=== PATIENT | male | born 1965 | race Caucasian/White ===

== ENCOUNTER → 2019-01-03 | Day surgery (SDC) | payer OTHER ==
[~2019-01-03] MED LIST: ASPIRIN EC 325 MG TAB PO ONE; ATROPINE SULFATE 1 MG/10 ML SYR IVP PRN; DIAZEPAM 5 MG TAB ONE; DIAZEPAM 5 MG TAB PO ONE; FAMOTIDINE 20 MG TAB ONE; FAMOTIDINE 20 MG TAB PO ONE; HYDROCODONE/APAP 5/325 TAB PO PRN; IOHEXOL 350mgI/ML (OMNIPAQUE) 150 ML BTL IV ONE; LIDOCAINE 1% 300 MG/30 ML SDV ONE; MIDAZOLAM 2 MG/2 ML VIAL ONE; NITROGLYCERIN 0.4 MG BTL SL PRN; NS 1,000 ML IV ONE; ONDANSETRON 4 MG/2 ML VIAL IVP PRN; OXYCODONE/APAP 5/325 TAB PO PRN; diphenhydrAMINE 25 MG CAP PO ONE; fentaNYL 100 MCG/2 ML INJ ONE
[2019-01-03 10:00] LABS: PLATELET COUNT 236 10^3/uL (150-400)
[2019-01-03 10:09] LABS: INR 1.08 (0.83-1.16); PROTIME(PATIENT) 14.2 SEC (12.0-15.0)
--- NOTE | 2019-01-03 10:57 | PDPROPOC ---
Sedation Plan of Care Sedation Plan of Care: vital signs stable, mental status noted, patient educated of risks, benefits, alternatives, patient can tolerate sedation ASA Classification: ASA 2 Planned drugs: fentanyl, midazolam Mallampati Score: Class 2 Mallampati Reference Image: Patient passed 3-3-2 rule?: Yes
--- NOTE | 2019-01-03 10:58 | PDHPUP ---
History & Physical Update H&P update statement: This history and physical update is based on an assessment of the patient which was completed after admission or registration (within 24 hours), but prior to the surgery/procedure. H&P update: H&P reviewed & patient examined, no change in patient's condition since H&P completed
--- NOTE | 2019-01-03 13:42 | PDDXCAT ---
Diagnostic Cath Note - . Date: 01/03/19 Catalogue Librarian: Son Indication: other (revisitation of pSVT with history of abnormal stress test with ECG changes noted) - Procedure Access: right groin Procedure: left heart catheterization, coronary angiography, left ventriculogram - Materials Left Heart Cath size: 6F Left Heart Cath materials: standard multipack (JL4, JR4, pigtail), JL3.5, Cachorro's R, other (AL1, LCB, AL2, EBU) - Findings-Left Heart Catheterization LM: Short vessel with trifurcation into the LAD, ramus, and LCX vessels. No appreciable CAD was noted to this vessel. LAD: Large diameter vessel with principal diagonal. Just distal to the diagonal , there is a 20% lesion noted. Distal tortuosity was noted. No further CAD was noted to the LAD system LCX: Large diameter vessel with a principal OM that has the majority of the LCX diameter. The mid/distal LCX is relatively small and diminuative. Distal tortuosity is noted. No significant luminal irregularities were noted. RCA: Large diameter vessel with very anterior and superior take off. Multiple catheters were attempted to get to the anterosuperior location with limited success. Ramus: Smallish vessel without appreciable luminal irregularities noted. EDP: 18 mm Hg LVEF: 55-60% Wall motion: normal wall motion Complications: catheter kink was noted, and Estimated blood loss: <50ml Closure method: manual pressure Assessment: Patient is a 53 y/o male with history of SVT s/p ablation with an abnormal stress test. Previously noted very anterior RCA take off was once again, challenging to image with multiple catheters unable to cannulate the ostium. We were able to get contract injections performed to slow widely patent vessel. Normal LVEF was also noted. Plan: Would have the patient follow up with cardiology in one week to discuss further CV testing option. Maintain therapy on antihypertensive therapy (CCB, ARB) as at present. Statin therapy should also continue. Intervention: none
--- NOTE | 2019-01-03 14:47 | CPEKG ---
Test Reason : OPEN Blood Pressure : / mmHG Vent. Rate : 067 BPM Atrial Rate : 067 BPM P-R Int : 160 ms QRS Dur : 099 ms QT Int : 418 ms P-R-T Axes : 041 017 073 degrees QTc Int : 442 ms Sinus rhythm Borderline T wave abnormalities Confirmed by Mukesh Cline ([id number] on 01/03/2019 2:46:45 PM Referred By: Mukesh Jones Confirmed By:Mukesh Cline
== END | disposition home or self-care (01) ==
LOC: FCATH 09:29
PROVIDERS: ATTEND Internal Medicine Cardiovascular Disease
DX: R94.39 Abnormal result of other cardiovascular function study (principal); I47.1 Supraventricular tachycardia; R07.89 Other chest pain; M10.9 Gout, unspecified; I10 Essential (primary) hypertension; E78.5 Hyperlipidemia, unspecified; Z79.82 Long term (current) use of aspirin
CPT/HCPCS: 93005; 93458; C1887; J1644; J2250; J3010; Q9967